=== PATIENT | male | born 1935 | race Caucasian/White ===

== ENCOUNTER → 2017-04-26 | Outpatient (CLI) | payer MEDICARE ==
[~2017-04-26] MED LIST: APR10 PO; ASPI-435 PO; Amlodipine PO; CLC100 PO; CLOP1TAB15 PO; CYAN100048 INJ; DUTA0.5C PO; Folic Acid PO; Losartan PO; MEGESTROL PO; Metoprolol PO; OPTIRAY 320 IV PRN; Stool Softner PO; TAMS0.4C59 PO
--- NOTE | 2017-04-26 14:06 | DIAGNOSTIC IMAGING REPORT ---
ABD/PELVIS COMBO CLINICAL HISTORY: 81 years-old Male presenting with N40.1 Benign localized hyperplasia of prostate with urinary obstruction, hematuria, history of left nephrectomy. TECHNIQUE: Multidetector CT of the abdomen and pelvis was performed before and after the administration of intravenous contrast. IV contrast: 70 mL of Optiray 320. A dose lowering technique was used consistent with the principles of ALARA (as low as reasonably achievable). COMPARISON: 12/10/2015 and 08/18/2015. CT DOSE (mGy.cm): The estimated cumulative dose is 2703.94 mGycm. FINDINGS: [facility] topogram: Cholecystectomy clips and inferior vena cava filter noted. Lung bases: Solid 4 mm pulmonary nodule in the right middle lobe, unchanged since 08/18/2015. 3 mm sub-solid nodule in the right lower lobe, unchanged. 4 mm solid nodule in the right lower lobe, also unchanged. Bandlike opacities at the lung bases may represent scarring. Old calcified granuloma at the left lung base. Multichamber enlargement of the heart. No pericardial or pleural effusion. Liver: Normal morphology. No liver lesion. Patent hepatic vasculature. Biliary: Mild intrahepatic biliary ductal prominence likely a reservoir effect in the post cholecystectomy state. Gallbladder surgically absent. Pancreas: Mild parenchymal atrophy. Large duodenal diverticulum at the level of the pancreatic head with associated displacement of the pancreatic parenchyma. Spleen: Normal. Adrenal glands: Normal. Kidneys and ureters: Postsurgical changes of left nephrectomy. No suspicious soft tissue in the operative bed. No right nephrolithiasis. No hydronephrosis. No filling defect within the right renal collecting system. Right ureter normal. Multiple tiny hypodensities in the right kidney too small to characterize but possibly cysts. Bladder: Significant protrusion of the prostate into the bladder neck. No focal bladder wall thickening. Few tiny bladder diverticula suggested along the posterior wall near the dome. Pelvic organs: Prostate enlargement likely secondary to benign prostatic hyperplasia. Bowel: Diverticulosis of the descending and sigmoid colon. Scattered diverticula noted elsewhere in the colon. Normal appendix. No bowel obstruction. Large duodenal diverticulum at the level of the pancreatic head. Peritoneal cavity: No free fluid or intraperitoneal gas. Vasculature: Atherosclerosis of the normal caliber abdominal aorta. IVC patent. Infrarenal IVC filter in place. Lymph nodes: No enlarged lymph nodes in the abdomen or pelvis. Abdominal wall: Small amount of fluid along the left inguinal canal, possibly encysted hydrocele. Musculoskeletal: Degenerative changes of the spine. IMPRESSION: 1. Prostatomegaly. 2. Post surgical changes of left nephrectomy. No recurrent soft tissue in the operative bed. No evidence of metastatic disease. 3. No right renal abnormality apart from few tiny suspected cysts. 4. Few small diverticula along the posterior bladder dome. 5. Multiple pulmonary nodules, the largest measuring 4 mm. Follow-up per [employer] 2017 recommendations below. These have been stable since 08/18/2015. Please refer to below summary of Fleischner Society 2017 recommendations for follow-up of incidental CT nodules (H Amy et al. Guidelines for management of incidental pulmonary nodules detected on CT images: From the Fleischner Society 2017. Radiology 2017; 284: 228-243.) SOLID NODULES Single nodule; size < 6 mm * Low risk patients: No routine follow-up * High risk patients: Optional CT at 12 months Single nodule; size 6-8 mm * Low risk patients: CT at 6-12 months, then consider CT at 18-24 months * High risk patients: CT at 6-12 months, then at 18-24 months Single nodule; size > 8 mm * Either low or high risk patients: Considered CT at 3 months, PET/CT, or tissue sampling Multiple nodules; size < 6 mm * Low risk patients: No routine follow up * High risk patients: Optional CT at 12 months Multiple nodules; size 6-8 mm * Low risk patients: CT at 3-6 months, then consider CT at 18-24 months * High risk patients: CT at 3-6 months, then at 18-24 months Multiple nodules; size > 8 mm * Low risk patients: CT at 3-6 months, then consider at 18-24 months * High risk patients: CT at 3-6 months, then at 18-24 months Note: These guidelines apply to incidental nodules. These guidelines do not apply to patients younger than 35 years, immunocompromised patients, or patients with cancer. * Low risk patients: Minimal or absent history of smoking and/or other known risk factors * High risk patients: History of smoking, exposure to other carcinogens, emphysema, fibrosis, upper lobe location, family history of lung cancer, etc. * If a nodule up to 8 mm is partly solid or is ground glass, further follow-up is required after 24 months to exclude possible slow growing adenocarcinoma. SUBSOLID NODULES Single ground-glass nodule * Nodule size < 6 mm: No routine follow-up * Nodule size > or = 6 mm: CT at 6-12 months to confirm persistence, then CT every 2 years until 5 years Single part-solid nodule * Nodule size < 6 mm: No routine follow-up * Nodules size > or = 6 mm: CT at 3-6 months to confirm persistence. If unchanged and solid component remains < 6 mm, annual CT should be performed for 5 years Multiple nodules * Nodule size < 6 mm: CT at 3-6 months. If stable, consider CT at 2 and 4 years. * Nodules size > or = 6 mm: CT at 3-6 months. Subsequent management based on the most suspicious nodule(s) Electronically signed by: Girish Zafar M.D. 04/26/2017 2:05 PM Dictated Date/Time: 04/26/2017 1:49 PM
== END | disposition home or self-care (01) ==
LOC: C.CTS 12:53
PROVIDERS: ATTEND Urology
DX: R31.0 Gross hematuria (principal); N40.1 Benign prostatic hyperplasia with lower urinary tract symptoms